=== PATIENT | female | born 1950 | race Caucasian/White ===

== ENCOUNTER 2017-05-18 20:24 | Emergency (ER) | payer OTHER ==
[~2017-05-18] VITALS: Ht 160 cm; Wt 70.8 kg
[~2017-05-18 20:24] MED LIST: ACET-6134 PO; HYDR-2852 PO; METF1TER8 PO; PHEN97.53 PO; ZET10 PO
[2017-05-18 20:34] VITALS: BP 118/70
--- NOTE | 2017-05-18 20:39 | NUR ---
TO LOBBY , AMB, V/S STABLE, A/W FOR BED, BRITTNY NOTED
--- NOTE | 2017-05-18 20:53 | NUR ---
PT TAKEN TO BED 10
--- NOTE | 2017-05-18 20:55 | NUR ---
67/F CAME IN W C/O HEADACHE, DIZZINESS, COUGH, FEVER, RUNNY NOSE X 1 DAY. CURRENTLY 100.9 TAT, TOOK TYLENOL 1G X 3 HOURS AGO.DENIES SOB/CP ALL LUNG SOUNDS CBTA, 20RR EVEN AND UNLABORED. HR EVEN AND REGULAR. DENIES ABD PAIN. REPORTS NAUSEA, DENIES V/D. PMH: HTN, HLD, DM
[2017-05-18] MEDS ORDERED: ACETAMINOPHEN EXTRA STRENGTH 500 MG TAB ONE (21:18)
--- NOTE | 2017-05-18 23:00 | NUR ---
PT AFEBRILE 97.9TAT
--- NOTE | 2017-05-19 00:07 | NUR ---
Patient discharged with v/s stable. Written and verbal after care instructions given and explained. Patient alert, oriented and verbalized understanding of instructions. Ambulatory with steady gait. All questions addressed prior to discharge. ID band removed. Patient advised to follow up with PMD. Rx of IBUPROFEN AND CODEINE given. Patient educated on indication of medication including possible reaction and side effects. Opportunity to ask questions provided and answered.
[2017-05-19 00:17] VITALS: BP 134/72
== END 2017-05-19 00:07 | disposition home or self-care (01) ==
LOC: MED 20:24
DX: J06.9 Acute upper respiratory infection, unspecified (principal); E11.9 Type 2 diabetes mellitus without complications; I10 Essential (primary) hypertension; F17.210 Nicotine dependence, cigarettes, uncomplicated; Z88.6 Allergy status to analgesic agent
CPT/HCPCS: 36415; 87804; 99285; Q0092

== ENCOUNTER 2018-10-11 13:51 | Emergency (ER) | payer OTHER ==
[~2018-10-11] VITALS: Ht 188 cm; Wt 73.1 kg
[2018-10-11 13:55] VITALS: BP 124/70
--- NOTE | 2018-10-11 16:24 | NUR ---
1624---PATIENT LEFT WITHOUT BEING SEEN BY DR. GIPSON. NO FURTHER CARE PROVIDED FOR PATIENT. 1634---2ND CALL, NO ANSWER 1634---3RD CALL, NO ANSWER
== END 2018-10-11 15:24 | disposition left against medical advice (07) ==
LOC: MED 13:51
DX: R10.2 Pelvic and perineal pain (principal); R30.9 Painful micturition, unspecified; Z53.21 Procedure and treatment not carried out due to patient leaving prior to being seen by health care provider

== ENCOUNTER 2018-10-20 01:18 | Emergency (ER) | payer OTHER ==
[~2018-10-20] VITALS: Ht 165.1 cm; Wt 71.7 kg
[2018-10-20 01:18] VITALS: BP 113/50
--- NOTE | 2018-10-20 01:18 | NUR ---
68/F BIBA FROM HOME FOR ALLERGIC REACTION, APPROX X2 HRS. PT HAS BEEN TAKING NEW MEDS FOR 1 WEEK AGO SINCE DX UTI. PT USED HER OWN EPI PEN IM AND BENADRYL PO, X30 MINS AGO. NO ANGIOEDEMA NOTED, HIVES AND FLUSHED SKIN NOTED ON FACE, TRUNK AND BUE, MILD SWELLING NOTED ON FOREHEAD. PT ARRIVES AOX4, GCS 15, SKIN FLUSHED WARM DRY, SPO2 94% ON RA, PLACED ON O2 2L NC WITH SPO2 97%, RR 14 EVEN AND UNLABORED. LUNG SOUNDS CLEAR BL. HX PRE-DM, HTN, HLD, CLAUSTROPHOBIA, TUBAL LIGATION, RX LISINOPRIL/HCTZ, SIMVASTATIN, BACTRIM, PYRIDIUM
--- NOTE | 2018-10-20 01:18 | NUR ---
PT ISABELL ALS. TAKEN TO BED 10
--- NOTE | 2018-10-20 01:19 | NUR ---
Dr. Otero evaluating patient at bedside.
[2018-10-20] MEDS ORDERED: diphenhydrAMINE 50 MG/ML VIAL IVP ONE (01:25)
[2018-10-20] MEDS ORDERED: methylPREDNISolone SS 125 MG in WATER STERILE 2 ML IV ONE (01:25)
[2018-10-20] MEDS ORDERED: NACL 0.9% 1,000 ML IV ONE (01:25)
[2018-10-20] MEDS ORDERED: FAMOTIDINE 20 MG/2 ML VIAL IVP ONE (01:25)
[2018-10-20] MEDS ORDERED: methylPREDNISolone SS 125 MG/2 ML VIAL ONE (01:40)
--- NOTE | 2018-10-20 03:07 | NUR ---
PT LAYING IN BED, SON AT BEDSIDE. VSS, SPO2 94% ON RA, RR 16 EVEN AND UNLABORED. DENIES ITCHING, SOB, OR ANY PAIN. PT WITH SIGNIFICANT IMPROVEMENT IN SKIN FLUSHING AND HIVES. ALL NEEDS MET AT THIS TIME.
[2018-10-20 03:45] VITALS: BP 111/51
--- NOTE | 2018-10-20 03:45 | NUR ---
Patient discharged with v/s stable. Written and verbal after care instructions given and explained. Patient alert, oriented and verbalized understanding of instructions. Ambulatory with steady gait. All questions addressed prior to discharge. ID band removed. Patient advised to follow up with PMD. Rx of MACROBID, EPIPEN, PREDNISONE, BENADRYL, PEPCID given. Patient educated on indication of medication including possible reaction and side effects. Opportunity to ask questions provided and answered.
== END 2018-10-20 03:45 | disposition home or self-care (01) ==
LOC: MED 01:18
DX: L50.0 Allergic urticaria (principal); E11.9 Type 2 diabetes mellitus without complications; I10 Essential (primary) hypertension; F17.210 Nicotine dependence, cigarettes, uncomplicated; Z88.6 Allergy status to analgesic agent; Z88.8 Allergy status to other drugs, medicaments and biological substances; Z91.018 Allergy to other foods; Z79.899 Other long term (current) drug therapy
CPT/HCPCS: 81002; 96374; 96375; 99283; J1200; J2930; J3490; J7030